=== PATIENT | male | born 1995 | race Caucasian/White ===

== ENCOUNTER 2018-09-19 17:10 | Emergency (ER) | payer BC | END 2018-09-19 18:46 | disposition home or self-care (01) | LOC: FTE 17:10 | DX: S90.32XA Contusion of left foot, initial encounter (principal); W50.1XXA Accidental kick by another person, initial encounter; Y92.89 Other specified places as the place of occurrence of the external cause | CPT/HCPCS: 73610; 73630-LT; 99283-25 ==